=== PATIENT | male | born 1995 ===

== ENCOUNTER 2021-09-25 07:53 | Emergency (ER) | payer OTHER ==
[~2021-09-25] VITALS: Ht 170.2 cm; Wt 61.2 kg
== END 2021-09-25 08:52 | disposition home or self-care (01) ==
LOC: ER 07:53
DX: L02.416 Cutaneous abscess of left lower limb (principal); L03.116 Cellulitis of left lower limb

== ENCOUNTER 2021-10-30 10:02 | Emergency (ER) | payer OTHER ==
[~2021-10-30] VITALS: Ht 175.3 cm; Wt 72.6 kg
== END 2021-10-30 13:04 | disposition home or self-care (01) ==
LOC: ER 10:02
DX: B34.9 Viral infection, unspecified (principal); R53.81 Other malaise

== ENCOUNTER 2022-03-17 10:17 | Outpatient (CLI) | payer OTHER | END 2022-03-17 10:22 | disposition home or self-care (01) | LOC: PPH VACUNA 10:17 | PROVIDERS: ATTEND Emergency Medicine Pediatric Emergency Medicine | DX: Z23 Encounter for immunization (principal) ==